=== PATIENT | female | born 1960 | race Caucasian/White ===

== ENCOUNTER 2020-07-01 11:21 | Inpatient (IN) | payer BC ==
[~2020-07-01] VITALS: Ht 160 cm; Wt 52.2 kg
[2020-07-01 12:34] LABS: HEMOGLOBIN 13.9 gm/dl (12.3-15.3); RED BLOOD COUNT 4.7 M/UL (4.00-5.10); WHITE BLOOD COUNT 18.8 K/UL (4.5-11.0)
[2020-07-01 12:44] LABS: BUN/CREATININE RATIO 13 (0-10)
[2020-07-01] MEDS ORDERED: LEVOFLOXACIN750 MG PO (13:54)
[2020-07-01] MEDS ORDERED: HYDROCODON-ACE1 EAC4 PO (13:54)
[2020-07-01] MEDS ORDERED: SYNTHROID50 MCG PO ×2 (13:55→22:14)
[2020-07-01] MEDS ORDERED: FLAGYL500 MG PO (13:55)
[2020-07-01] MEDS ORDERED: ZOFRAN ODT 4 MG4 MG SL (13:55)
[2020-07-01] MEDS ORDERED: ZOMIG5 MG PO (13:56)
[2020-07-01] MEDS ORDERED: FLONASE 0.05% N16 GM (13:56)
[2020-07-01] MEDS ORDERED: TYLENOL325 MG PO (13:57)
[2020-07-01] MEDS ORDERED: ALLERGY SYRING1 EAC1 SC (13:57)
[2020-07-02 05:57] LABS: HEMOGLOBIN 12.3 gm/dl (12.3-15.3); RED BLOOD COUNT 4.18 M/UL (4.00-5.10); WHITE BLOOD COUNT 13.3 K/UL (4.5-11.0)
[2020-07-02 06:24] LABS: BUN/CREATININE RATIO 15 (0-10)
[2020-07-02] MEDS ORDERED: HYDROCODON-ACE1 EAC4 PO (11:07)
[2020-07-02] MEDS ORDERED: LEVOFLOXACIN750 MG PO (11:08)
[2020-07-02] MEDS ORDERED: FLAGYL500 MG PO (11:08)
[2020-07-02] MEDS ORDERED: ZOFRAN ODT 4 MG4 MG SL (11:09)
[2020-07-02] MEDS ORDERED: FLONASE 0.05% N16 GM (11:09)
[2020-07-02] MEDS ORDERED: ZOMIG5 MG PO (11:10)
[2020-07-02] MEDS ORDERED: ALLERGY SYRING1 EAC1 MC (11:10)
[2020-07-02] MEDS ORDERED: TYLENOL325 MG PO (11:10)
[2020-07-03 03:13] LABS: HEMOGLOBIN 12.6 gm/dl (12.3-15.3); RED BLOOD COUNT 4.33 M/UL (4.00-5.10); WHITE BLOOD COUNT 13.2 K/UL (4.5-11.0)
[2020-07-03 03:34] LABS: BUN/CREATININE RATIO 18 (0-10)
--- NOTE | 2020-07-03 11:27 | NUR ---
PATIENT HAS REFUSED DOS OF SUMATRIPTAN AT THIS TIME. "GIVE ME ABOUT AN HOUR AND ILL TRY IT IF MY HEAD ACHE GETS WORSE."
[2020-07-04] MEDS ORDERED: DILAUDID1 MG/1 ML PO (11:31)
== END 2020-07-04 14:41 | disposition home or self-care (01) | DRG 563 ==
LOC: ER1 11:21 → MED SURG 4 13:06 → CDU 13:06 → MED SURG 4 20:56
PROVIDERS: Physician Assistant; Physician Assistant Medical; ADMIT Internal Medicine
DX: S39.011A Strain of muscle, fascia and tendon of abdomen, initial encounter (principal); C91.10 Chronic lymphocytic leukemia of B-cell type not having achieved remission; E03.9 Hypothyroidism, unspecified; Z85.3 Personal history of malignant neoplasm of breast; Z90.12 Acquired absence of left breast and nipple; Z88.5 Allergy status to narcotic agent; Z88.0 Allergy status to penicillin; Z79.899 Other long term (current) drug therapy; K59.00 Constipation, unspecified; Z20.822 Contact with and (suspected) exposure to COVID-19
CPT/HCPCS: 36415; 74160; 80048; 80053; 81001; 83735; 85025; 85027; 96365; 96368; 96375; 96376; 99285; J1170; J1956; J2270; J2405; J2550; J7030; Q9967; U0002